=== PATIENT | female | born 1955 ===

== ENCOUNTER 2024-04-19 11:10 | Outpatient (RCR) | payer OTHER, SELFPAY ==
[2024-04-19 11:30] VITALS: BP 158/71
[2024-04-19] MEDS: XOLAIR 150 MG SC ×2 (11:30)
[2024-04-19 11:38] VITALS: BMI 26.2
[2024-04-19 12:00] VITALS: BP 141/66
== END 2024-04-20 10:12 | disposition home or self-care (01) ==
LOC: OID 11:10
PROVIDERS: ATTENDING PHYSICIAN Internal Medicine
DX: L50.1 Idiopathic urticaria (principal)
CPT/HCPCS: 96372; J2357

== ENCOUNTER 2024-05-17 11:07 | Outpatient (RCR) | payer OTHER, SELFPAY ==
[2024-05-17 11:17] VITALS: BP 144/80
[2024-05-17] MEDS: XOLAIR 150 MG SC ×2 (11:24→11:25)
== END 2024-05-18 08:20 | disposition home or self-care (01) ==
LOC: OID 11:07
PROVIDERS: ATTENDING PHYSICIAN Internal Medicine
DX: L50.1 Idiopathic urticaria (principal)
CPT/HCPCS: 96372; J2357

== ENCOUNTER 2024-06-14 11:25 | Outpatient (RCR) | payer OTHER, SELFPAY ==
[2024-06-14 11:30] VITALS: BP 145/69
[2024-06-14] MEDS: XOLAIR 150 MG SC ×2 (11:47)
[2024-06-14 12:21] VITALS: BP 143/66
== END 2024-06-15 08:56 | disposition home or self-care (01) ==
LOC: OID 11:25
PROVIDERS: ATTENDING PHYSICIAN Internal Medicine
DX: L50.1 Idiopathic urticaria (principal)
CPT/HCPCS: 96372; J2357

== ENCOUNTER 2024-07-15 11:42 | Outpatient (RCR) | payer OTHER, SELFPAY ==
[2024-07-15 12:01] VITALS: BP 148/73
[2024-07-15] MEDS: XOLAIR 150 MG SC ×2 (12:08)
== END 2024-08-03 23:59 | disposition home or self-care (01) ==
LOC: OID 11:42
PROVIDERS: ATTENDING PHYSICIAN Internal Medicine
DX: L50.1 Idiopathic urticaria (principal)
CPT/HCPCS: 96372; J2357

== ENCOUNTER 2024-08-12 11:20 | Outpatient (RCR) | payer OTHER, SELFPAY ==
[2024-08-12 11:35] VITALS: BP 160/74
[2024-08-12] MEDS: XOLAIR 150 MG SC ×2 (11:42→11:43)
[2024-08-12 12:15] VITALS: BP 153/82
== END 2024-08-13 10:21 | disposition home or self-care (01) ==
LOC: OID 11:20
PROVIDERS: ATTENDING PHYSICIAN Internal Medicine
DX: L50.1 Idiopathic urticaria (principal)
CPT/HCPCS: 96372; J2357

== ENCOUNTER 2024-09-17 11:22 | Outpatient (RCR) | payer OTHER, SELFPAY ==
[2024-09-17 11:30] VITALS: BP 144/65
[2024-09-17] MEDS: XOLAIR 150 MG SC ×2 (11:37→11:38)
== END 2024-09-20 09:33 | disposition home or self-care (01) ==
LOC: OID 11:22
PROVIDERS: ATTENDING PHYSICIAN Internal Medicine
DX: L50.1 Idiopathic urticaria (principal)
CPT/HCPCS: 96372; J2357

== ENCOUNTER 2024-10-15 11:28 | Outpatient (RCR) | payer OTHER, SELFPAY ==
[2024-10-15 11:41] VITALS: BP 148/68
[2024-10-15] MEDS: XOLAIR 150 MG SC ×2 (11:53)
== END 2024-10-18 09:30 | disposition home or self-care (01) ==
LOC: OID 11:28
PROVIDERS: ATTENDING PHYSICIAN Internal Medicine
DX: L50.1 Idiopathic urticaria (principal)
CPT/HCPCS: 96372; J2357

== ENCOUNTER 2024-11-18 13:47 | Outpatient (RCR) | payer OTHER, SELFPAY ==
[2024-11-18 13:45] VITALS: BP 144/69
[2024-11-18] MEDS: XOLAIR 150 MG SC ×2 (13:58→13:59)
== END 2024-11-19 09:19 | disposition home or self-care (01) ==
LOC: OID 13:47
PROVIDERS: ATTENDING PHYSICIAN Internal Medicine
DX: L50.1 Idiopathic urticaria (principal)
CPT/HCPCS: 96372; J2357

== ENCOUNTER 2024-12-16 11:36 | Outpatient (RCR) | payer OTHER, SELFPAY ==
[2024-12-16 11:45] VITALS: BP 133/54
[2024-12-16] MEDS: XOLAIR 150 MG SC ×2 (11:52)
== END 2024-12-17 11:04 | disposition home or self-care (01) ==
LOC: OID 11:36
PROVIDERS: ATTENDING PHYSICIAN Internal Medicine
DX: L50.1 Idiopathic urticaria (principal)
CPT/HCPCS: 96372; J2357

== ENCOUNTER 2025-01-13 10:57 | Outpatient (RCR) | payer OTHER, SELFPAY ==
[2025-01-13 11:28] VITALS: BP 154/75
[2025-01-13] MEDS: XOLAIR 150 MG SC ×2 (11:44→11:45)
== END 2025-01-14 07:58 | disposition home or self-care (01) ==
LOC: OID 10:57
PROVIDERS: ATTENDING PHYSICIAN Internal Medicine
DX: L50.1 Idiopathic urticaria (principal)
CPT/HCPCS: 96372; J2357

== ENCOUNTER 2025-02-11 14:56 | Outpatient (RCR) | payer OTHER, SELFPAY ==
[2025-02-11 15:03] VITALS: BP 144/67
[2025-02-11] MEDS: XOLAIR 150 MG SC ×2 (15:09→15:10)
== END 2025-02-14 11:14 | disposition home or self-care (01) ==
LOC: OID 14:56
PROVIDERS: ATTENDING PHYSICIAN Internal Medicine
DX: L50.1 Idiopathic urticaria (principal)
CPT/HCPCS: 96372; J2357

== ENCOUNTER 2025-03-11 14:28 | Outpatient (RCR) | payer OTHER, SELFPAY ==
[2025-03-11] MEDS: XOLAIR 150 MG SC ×2 (14:39)
[2025-03-11 14:58] VITALS: BP 150/64
== END 2025-03-14 14:29 | disposition home or self-care (01) ==
LOC: OID 14:28
PROVIDERS: ATTENDING PHYSICIAN Internal Medicine
DX: L50.1 Idiopathic urticaria (principal)
CPT/HCPCS: 96372; J2357